=== PATIENT | female | born 1985 | race Two or more races ===

== ENCOUNTER 2021-10-21 11:10 | Inpatient (IN) | payer MEDICAID, OTHER ==
[~2021-10-21] VITALS: Ht 165.1 cm; Wt 106.6 kg
[2021-10-21 12:08] LABS: Basophils # (auto) 0.1 10 ^3/uL (0-0.2); Eosinophils # (auto) 0.2 10 ^3/uL (0-0.8); Eosinophils % (auto) 2.3 % (0.0-7.0); Hematocrit 45.9 % (36.0-46.0); Hemoglobin 16.2 g/dL (12.2-16.2); Lymphocytes # (auto) 2.3 10 ^3/uL (0.4-5.4); Lymphocytes % (auto) 22.3 % (10.0-50.0); Mean Corpuscular Hemoglobin 28.9 pg (28.0-32.0); Mean Corpuscular Hgb Conc. 35.2 g/dL (32.0-36.0); Monocytes # (auto) 0.7 10 ^3/uL (0-1.3); Monocytes % (auto) 6.5 % (0.0-12.0); Neutrophils # (auto) 6.9 10 ^3/uL (1.6-8.6); Neutrophils % (auto) 67.9 % (37.0-80.0); Nucleated Red Blood Cells % 0.1 %; Red Blood Cells 5.59 10^6/uL (4.0-5.20); Red Cell Distribution Width 14.8 % (11.8-14.3); White Blood Cell 10.2 10^3/uL (4.4-10.8)
[2021-10-21 12:22] LABS: Calcium 8.7 mg/dL (8.5-10.1); Potassium 3.4 mmol/L (3.5-5.1)
[2021-10-21 12:31] LABS: BUN/Creatinine Ratio 14.6; Bilirubin, Total 0.7 mg/dL (0.2-1.0); Total Protein 8.4 g/dL (6.4-8.2)
[2021-10-21] MEDS ORDERED: cloNIDine HCL 0.1 MG TAB PO ONE ×2 (14:00→15:00)
[2021-10-21] MEDS ORDERED: hydrALAZINE HCL 20 MG/ML VL IV ONE ×2 (17:00→20:30)
[2021-10-21] MEDS ORDERED: ONDANSETRON HCL 4 MG/2 ML VIAL IV PRN (21:00)
[2021-10-21] MEDS ORDERED: TEMAZEPAM 15 MG CAP PO PRN (21:00)
[2021-10-21 23:10] VITALS: BP 166/100
[2021-10-21] MEDS: hydrALAZINE HCL 20 MG/ML VL IV PRN (23:45)
[2021-10-22] MEDS ORDERED: ASPITAB34 PO (00:29)
[2021-10-22 05:00] VITALS: BP 156/96
[2021-10-22 06:11] LABS: Basophils # (auto) 0.1 10 ^3/uL (0-0.2); Basophils % (auto) 0.7 % (0.0-2.0); Eosinophils # (auto) 0.1 10 ^3/uL (0-0.8); Hematocrit 40.7 % (36.0-46.0); Hemoglobin 13.9 g/dL (12.2-16.2); Lymphocytes # (auto) 1.6 10 ^3/uL (0.4-5.4); Lymphocytes % (auto) 16.1 % (10.0-50.0); Mean Corpuscular Hgb Conc. 34.1 g/dL (32.0-36.0); Monocytes # (auto) 0.4 10 ^3/uL (0-1.3); Monocytes % (auto) 4.3 % (0.0-12.0); Neutrophils # (auto) 7.6 10 ^3/uL (1.6-8.6); Neutrophils % (auto) 77.9 % (37.0-80.0); Nucleated Red Blood Cells % 0.1 %; Red Blood Cells 4.96 10^6/uL (4.0-5.20); Red Cell Distribution Width 14.5 % (11.8-14.3); White Blood Cell 9.8 10^3/uL (4.4-10.8)
[2021-10-22 06:24] LABS: Calcium 8.2 mg/dL (8.5-10.1); Potassium 3.5 mmol/L (3.5-5.1)
[2021-10-22 06:27] LABS: BUN/Creatinine Ratio 20.6
[2021-10-22] MEDS: hydrALAZINE HCL 20 MG/ML VL IV PRN ×2 (06:43→18:42)
[2021-10-22 09:00] VITALS: BP 174/110
[2021-10-22] MEDS: PANTOPRAZOLE 40 MG TAB PO SCH (09:11)
[2021-10-22] MEDS: ACETAMINOPHEN 325 MG TAB PO PRN ×2 (09:12→18:47)
[2021-10-22] MEDS ORDERED: LISINOPRIL 10 MG TAB PO SCH (10:00)
[2021-10-22] MEDS ORDERED: NIFEdipine ER 30 MG TAB PO ONE (11:30)
[2021-10-22] MEDS ORDERED: METOPROLOL TARTRATE 50 MG TAB PO ONE (11:30)
[2021-10-22] MEDS: NIFEdipine ER 30 MG TAB PO SCH ×2 (12:00→21:44)
[2021-10-22 13:00] VITALS: BP 157/101
[2021-10-22 14:15] LABS: Alcohol, Urine < 3.0 mg/dL (0-10); Amphetamine Screen, Urine NEGATIVE (NEGATIVE); Barbiturate Scree,Urine NEGATIVE (NEGATIVE); Benzodiazephine Screen, Urine NEGATIVE (NEGATIVE); Cannabinoid Screen, Urine NEGATIVE (NEGATIVE); Cocaine Screen, Urine NEGATIVE (NEGATIVE); Opiate Scree,Urine NEGATIVE (NEGATIVE); Phencyclidine Screen, Urine NEGATIVE (NEGATIVE)
[2021-10-22 17:00] VITALS: BP 171/111
[2021-10-22 21:42] VITALS: BP 126/73
[2021-10-22] MEDS: METOPROLOL TARTRATE 50 MG TAB PO SCH (21:44)
[2021-10-23 05:00] VITALS: BP 134/78
[2021-10-23 09:00] VITALS: BP 131/76
[2021-10-23] MEDS: NIFEdipine ER 30 MG TAB PO SCH ×2 (09:19→21:41)
[2021-10-23] MEDS: METOPROLOL TARTRATE 50 MG TAB PO SCH ×2 (09:19→21:41)
[2021-10-23] MEDS: PANTOPRAZOLE 40 MG TAB PO SCH (09:20)
[2021-10-23] MEDS ORDERED: NIFEdipine ER 30 MG TAB PO SCH (10:00)
[2021-10-23] MEDS: ACETAMINOPHEN 325 MG TAB PO PRN (10:55)
[2021-10-23 12:48] VITALS: BP 141/78
[2021-10-23 17:00] VITALS: BP 137/90
[2021-10-23] MEDS: SACUBITRIL-VALSARTAN 24mg/26mg TAB PO SCH (21:41)
[2021-10-23 22:00] VITALS: BP 163/88
[2021-10-24 05:00] VITALS: BP 151/76
[2021-10-24] MEDS: hydrALAZINE HCL 20 MG/ML VL IV PRN (06:17)
[2021-10-24 09:00] VITALS: BP 134/78
[2021-10-24] MEDS: SACUBITRIL-VALSARTAN 24mg/26mg TAB PO SCH (09:57)
[2021-10-24] MEDS: METOPROLOL TARTRATE 50 MG TAB PO SCH (09:57)
[2021-10-24] MEDS: PANTOPRAZOLE 40 MG TAB PO SCH (09:58)
[2021-10-24] MEDS: NIFEdipine ER 30 MG TAB PO SCH (09:58)
[2021-10-24 14:30] VITALS: BP 126/69
[2021-10-24] MEDS ORDERED: METO-158 PO (16:25)
[2021-10-24] MEDS ORDERED: NIFE1TAB36 PO (16:25)
[2021-10-24] MEDS ORDERED: SACU1TAB PO (16:25)
== END 2021-10-24 16:50 | disposition home or self-care (01) | DRG 305 ==
LOC: ER 11:10 → OVERFLOW 21:00 → WEST WING 23:15
PROVIDERS: ADMIT Nurse Practitioner; ATTEND Family Medicine
DX: I10 Essential (primary) hypertension (principal); Z68.41 Body mass index [BMI] 40.0-44.9, adult; E66.01 Morbid (severe) obesity due to excess calories; Z20.822 Contact with and (suspected) exposure to COVID-19; Z79.899 Other long term (current) drug therapy; Z83.3 Family history of diabetes mellitus; Z88.2 Allergy status to sulfonamides; Z82.49 Family history of ischemic heart disease and other diseases of the circulatory system
CPT/HCPCS: 36415; 70450; 71046; 80048; 80053; 80307; 82384; 82530; 83835; 83880; 84484; 84702; 85025; 85379; 87426; 93005; 93306; 93975; 96374; 96375; G0378; J2405